=== PATIENT | female | born 1985 | race African-American/Black ===

== ENCOUNTER 2017-06-01 05:04 | Inpatient (IN) ==
[2017-05-31 09:57] LABS: MANUAL DIFF NEEDED? NO
[2017-05-31 10:20] LABS: BASO% 0.3 % (0.0-0.8); EOS# 0.04 X1000 (0.0-0.7); EOS% 0.5 % (0.0-10.0); HEMATOCRIT 30.5 % (37.0-47.0); HEMOGLOBIN 9.8 g/dL (12.0-16.0); IMM GRAN# 0.04 X1000 (0.0-0.04); IMM GRAN% 0.5 % (0.0-0.5); LYMPH# 2.03 X1000 (1.2-3.4); LYMPH% 26.4 % (20.5-51.1); MCH 26.1 PG (27-31); MCHC 32.1 g/dL (33-37); MCV 81.3 FL (81-99); MONO# 0.64 X1000 (0.11-0.59); MONO% 8.3 % (1.7-9.3); MPV 9.3 FL (7.4-10.4); PLT 260 X1000 (130-400); RBC 3.75 XMIL (4.2-5.4)
--- NOTE | 2017-05-31 12:22 | HISTORY AND PHYSICAL ---
ADMITTING PHYSICIAN: Oziel Moreno MD. ADMITTING DIAGNOSES: Term , for repeat section. SUMMARY: Ada Avalos is a 31-year-old 4, para 2-0-1-2, who is at term gestation. Her blood type is AB positive. Rubella nonimmune. Hepatitis B surface antigen, HIV, and group B strep are all negative. She has previously had 2 sections. She is now at 39.5 weeks and requesting repeat . She does not desire tubal sterilization. She is therefore being admitted for a repeat . PAST MEDICAL HISTORY: Patient has had 1 miscarriage and 2 deliveries. Otherwise she has no chronic medical or surgical illnesses. CURRENT MEDICATIONS: vitamins. ALLERGIES: None. PHYSICAL EXAMINATION: GENERAL: Shows an obese, gravid female. VITAL SIGNS: Stable. She is afebrile. CARDIOVASCULAR: Regular rate and rhythm without murmurs, rubs, or gallops. PULMONARY: Clear. BREASTS: No masses. ABDOMEN: Gravid. PELVIC: Cervix is closed. EXTREMITIES: No clubbing, edema, or cyanosis. IMPRESSION: Term , for repeat section. PLAN: We will proceed with repeat . Risks of surgery including pain, bleeding, infection, bowel or bladder injury, and anesthesia complications have been discussed. cc: Oziel Moreno MD
[2017-06-01] MEDS ORDERED: KEFZOL 1 GM/D5W 1 GM/50 ML IVPB IV PRN (05:08)
[2017-06-01] MEDS ORDERED: BICITRA PO ONE (05:12)
[2017-06-01] MEDS ORDERED: SODIUM CHLORIDE 0.9% INJ ONE (05:12)
[2017-06-01] MEDS ORDERED: PEPCID IV ONE (05:12)
[2017-06-01] MEDS: LR 1,000 ML IV SCH ×2 (05:45→06:23)
[2017-06-01 06:00] LABS: URINE SOURCE VOIDED
[2017-06-01 06:09] LABS: BILIRUBIN URINE NEGATIVE (NEGATIVE); BLOOD URINE TRACE (NEGATIVE); CLARITY CLEAR (CLEAR); COLOR YELLOW; GLUCOSE URINE NEGATIVE (NEGATIVE); LEUKOCYTES URINE 1+ (NEGATIVE); NITRITE URINE NEGATIVE (NEGATIVE); PROTEIN URINE TRACE mg/dL (NEGATIVE); UROBILINOGEN URINE 1+(1 mg/dL)
[2017-06-01 06:12] LABS: UR AMPHETAMINES QUAL NONE DETECTED (NONE DETECT); UR BARBITUATES QUAL NONE DETECTED (NONE DETECT); UR BENZODIAZEPIN QUAL NONE DETECTED (NONE DETECT); UR CANNABINOIDS QUAL NONE DETECTED (NONE DETECT); UR COCAINE QUAL NONE DETECTED (NONE DETECT); UR MDMA QUAL NONE DETECTED (NONE DETECT); UR METHADONE QUAL NONE DETECTED (NONE DETECT); UR METHAMPHETAMINE QUAL NONE DETECTED (NONE DETECT); UR OPIATES QUAL NONE DETECTED (NONE DETECT); UR OXYCODONE QUAL NONE DETECTED (NONE DETECT); UR PCP QUAL NONE DETECTED (NONE DETECT); UR TCA QUAL NONE DETECTED (NONE DETECT)
[2017-06-01] MEDS ORDERED: PITOCIN ONE (06:30)
[2017-06-01] MEDS ORDERED: NEO-SYNEPHRINE ONE (06:34)
[2017-06-01] MEDS ORDERED: LR 1,000 ML ONE (06:34)
[2017-06-01] MEDS ORDERED: CALCIUM CHLORIDE SYRINGE ONE (06:34)
[2017-06-01] MEDS ORDERED: DURAMORPH ONE (06:41)
[2017-06-01] MEDS ORDERED: ROBINUL ONE (07:09)
[2017-06-01] MEDS ORDERED: PITOCIN IM PRN (07:57)
[2017-06-01] MEDS ORDERED: M-M-R II VACCINE SUBQ ONE (07:57)
[2017-06-01] MEDS ORDERED: BOOSTRIX VACCINE IM ONE (07:57)
[2017-06-01] MEDS ORDERED: HYDROXYZINE PO PRN (07:57)
[2017-06-01] MEDS ORDERED: AMBIEN PO PRN (07:57)
[2017-06-01] MEDS ORDERED: HYDROXYZINE IM PRN (07:57)
[2017-06-01] MEDS ORDERED: PITOCIN 20 UNITS/LR 20 UNITS/1,000 ML IV.SOLN IV ONE (07:57)
[2017-06-01] MEDS ORDERED: DULCOLAX PR PRN (07:57)
[2017-06-01] MEDS ORDERED: MYLICON PO PRN (07:57)
[2017-06-01] MEDS ORDERED: NORCO-5 PO PRN (07:57)
[2017-06-01] MEDS ORDERED: NORCO-10 PO PRN (07:57)
[2017-06-01] MEDS ORDERED: DEMEROL PO PRN ×2 (07:57)
[2017-06-01] MEDS ORDERED: PERCOCET-5 PO PRN (07:57)
[2017-06-01] MEDS: TORADOL IV SCH ×3 (08:28→20:50)
[2017-06-01] MEDS ORDERED: ZOFRAN ODT PO PRN (08:45)
[2017-06-01] MEDS ORDERED: NARCAN INJ PRN (08:45)
[2017-06-01] MEDS ORDERED: ZOFRAN IV PRN (08:45)
[2017-06-01] MEDS ORDERED: TORADOL IV PRN (08:46)
[2017-06-01] MEDS ORDERED: EPHEDRINE ONE (08:57)
--- NOTE | 2017-06-01 09:07 | OPERATIVE NOTE ---
PROCEDURE DATE: 06/01/2017 SURGEON: Oziel Moreno M.D. ANESTHESIA: Spinal. OPERATION PERFORMED: Repeat low-transverse section. PREOPERATIVE DIAGNOSES: 1. Term . 2. Previous section x2, requesting repeat section. POSTOPERATIVE DIAGNOSES: 1. Term . 2. Previous section x2, requesting repeat section. FINDINGS: At 0707, a 7-pound 14-ounce female was delivered in a vertex presentation by repeat low-transverse . Apgars were 9 at 1 minute and 10 at 5 minutes. SUMMARY: The patient was taken back to the operating room, where spinal anesthetic was placed. She was then placed in the supine position with left lateral tilt. The abdomen was prepped and draped in the usual fashion. Figueroa catheter was in her urinary bladder. Once satisfactory conduction of anesthesia was demonstrated, a repeat Pfannenstiel incision was made. This incision was taken down to the fascia, and the fascia was excised transversely. The underlying rectus muscles were bluntly and sharply dissected free. The rectus muscle was in the midline. The peritoneum was entered. Lower uterine segment was identified. A bladder flap was created. A low-transverse incision was made. This incision was extended laterally using digital pressure. Membranes were ruptured, revealing clear fluid. The 's vertex was delivered through this incision without difficulty. The shoulders and the body delivered without complications. The oropharynx was bulb suctioned. The cord was clamped and cut. The was handed to the nurses for further care and evaluation. Cord blood was obtained. Placenta was manually removed. Uterus was delivered onto the abdominal wall and explored. All membrane fragments were removed. The myometrium was then reapproximated using a running #1 chromic suture, followed by several figure- of-eight chromic sutures for complete hemostasis across the suture line. The uterus was placed back in the pelvic cavity. Uterine incision was reexamined and found to be hemostatic. The pelvic cavity was irrigated with copious amounts of sterile water. Again, hemostasis was noted. Our first and second sponge, instrument, and needle counts were reported as correct. The peritoneum was closed using running chromic sutures. The fascia was closed using running Vicryl sutures x2. The adipose tissue was reapproximated using a running 3-0 Vicryl suture, and the skin edge was reapproximated using 3-0 Monocryl on a Brain needle. Final sponge, instrument, and needle count were reported as correct at this time. Blood loss was estimated by Anesthesia at 700 mL. There were no complications. The patient went to the recovery room in stable condition. cc: Oziel Moreno MD
[2017-06-01] MEDS: MORPHINE IV PRN ×3 (10:32→23:52)
[2017-06-01] MEDS: PRECARE PO SCH (10:34)
[2017-06-01] MEDS: MYLICON PO SCH ×4 (10:34→20:49)
[2017-06-01] MEDS: ZOFRAN IV PRN (11:09)
[2017-06-01] MEDS: BENADRYL IV PRN ×2 (11:53→13:38)
[2017-06-01] MEDS ORDERED: BENADRYL IV PRN (14:50)
[2017-06-01] MEDS: NARCAN IV SCH (15:40)
[2017-06-01] MEDS: NS IV SCH (15:40)
[2017-06-01] MEDS: PITOCIN 10 UNITS/LR 10 UNIT/1,000 ML IV.SOLN IV SCH ×2 (16:03→20:52)
[2017-06-01 16:48] LABS: HEMATOCRIT 25.4 % (37.0-47.0); HEMOGLOBIN 8.3 g/dL (12.0-16.0)
[2017-06-01] MEDS: PERICOLACE PO SCH (20:49)
[2017-06-02] MEDS: NARCAN IV SCH (01:32)
[2017-06-02] MEDS: NS IV SCH (01:32)
[2017-06-02] MEDS: MORPHINE IV PRN ×2 (03:10→07:31)
[2017-06-02] MEDS: TORADOL IV SCH (03:12)
[2017-06-02] MEDS ORDERED: LR 500 ML IV SCH (05:29)
[2017-06-02 06:20] LABS: HEMATOCRIT 24.7 % (37.0-47.0); HEMOGLOBIN 7.7 g/dL (12.0-16.0); MCH 25.7 PG (27-31); MCHC 31.2 g/dL (33-37); MCV 82.3 FL (81-99); MPV 10.1 FL (7.4-10.4)
[2017-06-02] MEDS: ZOFRAN IV PRN (07:32)
[2017-06-02] MEDS ORDERED: LR 1,000 ML IV SCH (07:41)
[2017-06-02] MEDS: MOTRIN PO PRN ×2 (09:32→19:22)
[2017-06-02] MEDS: PRECARE PO SCH (09:32)
[2017-06-02] MEDS: MYLICON PO SCH ×4 (09:32→20:41)
[2017-06-02] MEDS: PERCOCET-10 PO PRN ×4 (09:32→19:21)
[2017-06-02] MEDS: DEMEROL IM PRN (20:41)
[2017-06-02] MEDS: PERICOLACE PO SCH (20:41)
[2017-06-02] MEDS: PHENERGAN IM PRN (20:41)
[2017-06-03] MEDS: MOTRIN PO PRN ×3 (05:14→21:55)
[2017-06-03] MEDS: MYLICON PO SCH ×4 (09:53→21:55)
[2017-06-03] MEDS: PRECARE PO SCH (09:53)
[2017-06-03] MEDS: PERCOCET-10 PO PRN ×4 (10:03→22:22)
[2017-06-03] MEDS ORDERED: VASELINE TOP PRN (11:51)
[2017-06-03] MEDS: PERICOLACE PO SCH ×2 (19:35→22:23)
[2017-06-03] MEDS: DEMEROL IM PRN (23:57)
[2017-06-03] MEDS: PHENERGAN IM PRN (23:57)
[2017-06-04 00:02] VITALS: BP 104/54
--- NOTE | 2017-06-04 07:41 | DISCHARGE SUMMARY ---
ADMISSION DATE: 06/01/2017 DISCHARGE DATE: 06/04/2017 ADMITTING DIAGNOSES: 1. Term . 2. Previous section x2. 3. Desires repeat section. PRINCIPAL DIAGNOSES: 1. Term . 2. Previous section x2. 3. Desires repeat section. PRINCIPAL PROCEDURE: Repeat section. SUMMARY: Ada Avalos is a 31-year-old 4, para 2-0-1-2, at term gestation. She has previously had 2 sections. She desired a repeat section. She did not desire tubal sterilization. She was admitted to the hospital and underwent a repeat low transverse section. She did have significant adhesions. She delivered a 7 pound 14 ounce female with scores of 9 at 1 minute and 10 at 5 minutes. There were no intraoperative complications. Following delivery, the patient did well. She remained afebrile, and all vital signs were stable. She had an admission hemoglobin and hematocrit of 9.8/30.5, discharge hemoglobin and hematocrit being 7.7/24.7. On the day of discharge, cardiac and pulmonary examinations were normal. Bowel and bladder functions were normal. Incision was clean and dry. She was having scant vaginal bleeding. Ms. Avalos is being discharged today and will be seen back in the office on Sunday. DISCHARGE INSTRUCTIONS: Routine discharge instructions, activity limitations, and precautions were discussed. DISCHARGE MEDICATIONS: She will continue vitamins, and she was given prescriptions for Percocet 10, number 30, and Motrin 800 mg for postoperative pain. cc: Oziel Moreno MD
[2017-06-04] MEDS: MOTRIN PO PRN (08:38)
[2017-06-04] MEDS: PRECARE PO SCH (08:38)
[2017-06-04] MEDS: PERCOCET-10 PO PRN (08:38)
[2017-06-04] MEDS: MYLICON PO SCH (08:38)
== END 2017-06-04 10:20 | disposition home or self-care (01) ==
LOC: P.LD 05:04
PROVIDERS: ADMIT Obstetrics & Gynecology; ATTEND Obstetrics & Gynecology